=== PATIENT | male | born 1980 | race Caucasian/White ===

== ENCOUNTER 2019-04-20 12:00 | Outpatient (RCR) | payer OTHER, SELFPAY ==
--- NOTE | 2019-03-22 18:47 | HP.PTEVAL ---
Patient's Visit Information MARYANNE CHAIDEZ is a 39 year old M referred to Physical Therapy by Aston Bustamante DPM with a diagnosis of BILATERAL ACHILESS TENDONITIS. Date of Evaluation: 03/21/19 Physical Therapist: Reji De La Cruz, PT, Cert MDT, OCS - Visit Plan Frequency: 2-3x /Week Duration: 4 Weeks Plan: PT INTERVENTIONS MANUAL THERAPY STM /HAWK/STICK FOAM ROLL CALF,MODALTIES ,ECCENTIC STRENGTHENING - Subjective Findings: This 39 y/o male presents to physical therapy with bilateral achilles tendonitis.Symptoms worse right > left. Patient developed achilles tendonitis riding spin bike attempted to loss weight. Symptoms proressivelly worse past [address] Bustamante 2x provided with night spints and stretches . Patient located G-S ,achilles tendon plantar aspect of foot. Patient DR recommended PT. Patient worse with walking standing and physical activity. Denies parathesia/tingling. Patient is unable to resume spinning. Patient condtion affects ability to resume aeorbic ex's and daily function. SOCAIL: . VOCATION: assisted principale - Pain Right Ankle Pain Intensity (Out of 10): 3 Pain Intensity Range: 10 Left Ankle Pain Intensity (Out of 10): 2 Pain Intensity Range: 10 - Objective POSTURE: frontal plane mechanics. GAIT: normal yael. PALAPTION: tender G-S ,achilles tendons,right insertion of plantarfascia. NEURO: INTACT. AROM: dorsiflexion 5 degrees,planterflexion 65 degrees,inversion 35 degrees,eversion 10 degrees. MMT: ankle dorsiflexion,posterior tibilas,evetors 4/5 G-Solues 4/5 slight pain. PROPRIOCEPTION: INTACT - Goals Goal 1:: Patient to be Independant with HEP. Goal Time Frame: 4-6 Weeks Goal 2:: Patient to have no symptoms with aerobic type ex's like biking ,jogging Goal Time Frame: 4-6 Weeks Goal 3:: Patient have good strength of G-S to improve function. Goal Time Frame: 4-6 Weeks Goal 4:: Patient to improve LFES score by 5-10points to improve function/QOL. Goal Time Frame: 4-6 Weeks - Rehabilitation Potential Physical Therapy Diagnosis: This patient has bilteral calf pain G-Solues with tendonitis achilles with pain palaption,affects ability to resume aerobic type exercises job demands Rehabilitation Potential: Good - Anticipated Interventions Patient/Client Instruction: Educate patient on: Condition, Plan of Care For the Purpose of:: To decrease pain, To decrease swelling/inflammation, To increase ROM, To improve muscle performance and motor function, To improve ability to perform ADL's, To increase tolerance to activity/condition/position, To improve ability of physical actions for home/community/work/leisure, To improve health of tissue, To decrease soft tissue restriction, To increase flexibility/ROM, To improve ability to perform tasks related to life management Therapeutic Exercise to Include: Strength training, Balance training, Flexibilty training, Active ROM Comment: STRENGTHENING ECCENTICS For the Purpose of:: To decrease pain, To increase ROM, To improve muscle performance and motor function, To improve ability to perform ADL's, To increase tolerance to activity/condition/position, To improve performance and independence with ADL's, To improve ability of physical actions for home/community/work/leisure, To improve gait and locomotor functions, To improve endurance, To improve ability to perform tasks related to life management Manual Therapy Techniques to Include: Mobilization, Soft tissue mobilization Comment: CALF-HAWK For the Purpose of:: To decrease pain, To increase ROM, To improve nutrient delivery to tissue, To increase oxygenation perfusion, To improve health of tissue, To decrease soft tissue restriction TENS: Yes IF ES: Yes Cryotherapy (ice pack, ice massage): Yes Thermo therapy (hot pack): Yes Ultrasound (thermal/non thermal): Yes For the Purpose of:: To decrease pain, To increase ROM, To improve nutrient delivery to tissue, To improve health of tissue, To decrease soft tissue restriction Thank you for the opportunity to evaluate your patient. For Medicare and Medicare HMO plans, please review the plan of care and approve it. It will need to be FAXED BACK to us at [phone] for Medicare purposes. For Medicare only, by signing this I certify the plan of care. Please let me know if there are questions or concerns regarding this plan of care. Physician Signature: Date:
--- NOTE | 2019-06-27 09:02 | HP.PTDCSUM ---
It has been my pleasure to treat MARYANNE CHAIDEZ referred by Aston Bustamante DPM, with the diagnosis of BILATERAL ACHILESS TENDONITIS for a total of 9 visit(s). Discharge Date: Please see the following information for a summary of their discharge status. Subjective: Doing well except plantarfascia sore right occassional Right Ankle Pain Intensity (Out of 10): 0 Left Ankle Pain Intensity (Out of 10): 0 % Improvement: 90 Objective/Function: Doing great no pain able to jog perform all ex's with pain except becomes fatigues Goal 1:: Patient to be Independant with HEP. Goal 2:: Patient to have no symptoms with aerobic type ex's like biking ,jogging Goal 3:: Patient have good strength of G-S to improve function. Goal 4:: Patient to improve LFES score by 5-10points to improve function/QOL. Plan: PT INTERVENTIONS MANUAL THERAPY STM /HAWK/STICK FOAM ROLL CALF,MODALTIES ,ECCENTIC STRENGTHENING If there are questions or concerns regarding this patient's physical therapy, please feel free to call me at [phone]. Thank you for the referral of this patient. Sincerely, Reji De La Cruz, PT, Cert MDT, OCS
== END 2019-04-20 19:00 | disposition home or self-care (01) ==
LOC: PT 12:00
PROVIDERS: Family Provider Family Medicine; PCP Family Medicine; Referring Provider Podiatrist; Visit Provider Podiatrist
DX: M76.62 Achilles tendinitis, left leg (principal); M76.61 Achilles tendinitis, right leg; M67.02 Short Achilles tendon (acquired), left ankle; M67.01 Short Achilles tendon (acquired), right ankle
CPT/HCPCS: 97110; 97140; 97161